=== PATIENT | female | born 1985 | race Hispanic/Latino ===

== ENCOUNTER 2020-02-01 13:22 | Outpatient (CLI) | payer OTHER, SELFPAY ==
--- NOTE | ~2020-02-01 | US_ITS ---
Please refer to diagnostic mammogram report dated 02/01/2020 for details. Reviewed, dictated and finalized at location A. D COORDINATOR
--- NOTE | ~2020-02-01 | MM_ITS ---
EXAMINATION: MM diagnostic yasmeen BI w teresa HISTORY: Breast pain. Left breast discharge. Swollen right lymph nodes. TECHNIQUE: Additional 3-D tomosynthesis images of the breasts were performed and synthetic 2-D images were generated. CAD analysis was submitted and interpreted. High resolution bilateral complete breas t ultrasound was performed. COMPARISON: None BREAST PARENCHYMAL COMPOSITION: The breasts are heterogenously dense, which may obscure small masses. FINDINGS: MAMMOGRAPHIC FINDINGS: There are no suspicious masses, calcifications or architectural distortion. There are bilateral breas t asymmetries which are relatively symmetric. ULTRASOUND: Bilateral breast ultrasound: There are no suspicious masses or fluid cysts in the right breast to sug gest malignancy. There is a 9 mm cyst of the left breast at 4:00, 6 cm from the nipple. No suspicious masses are identified in the left breast by ultrasound. IMPRESSION: 1. No evidence for malignancy in either breast. Benign findings. 2. Routine yearly screening mammogram and regular clinical breast examination are recommended. Recomm end follow-up clinical management for nipple discharge. BI-RADS Category 2: Benign finding(s). Reviewed, dictated and finalized at location A. IC MAN IMPRESSION: 1. No evidence for malignancy in either breast. Benign findings. 2. Routine yearly screening mammogram and regular clinical breast examination a re recommended. Recommend follow-up clinical management for nipple discharge. BI-RADS Category 2: Benign finding(s).
== END 2020-02-01 13:23 | disposition home or self-care (01) ==
LOC: ANHIMG 13:26
PROVIDERS: PCP Family Medicine; Visit Provider Nurse Practitioner Obstetrics & Gynecology
DX: N60.02 Solitary cyst of left breast (principal); N64.52 Nipple discharge; N64.4 Mastodynia
CPT/HCPCS: 76641; 77062; 77066; G0279

== ENCOUNTER 2023-04-29 09:32 | Emergency (ER) | payer OTHER, SELFPAY ==
[2023-04-29 09:54] VITALS: BP 101/60; PULSE 73; RESP 16; TEMP 36.8; O2SAT 99
--- NOTE | 2023-04-29 10:58 | ED.EYEPROB ---
HPI - Eye Problem General Chief complaint: Eye Problems Stated complaint: both eyes red Time Seen by Provider: 04/29/23 10:58 Source: patient Mode of arrival: ambulatory Limitations: no limitations History of Present Illness HPI Narrative: 38-year-old female [facility] with complaint bilateral eye erythema, edema, and yellow drainage for 2 days. Patient endorses that upon wakening her eyes were matted shut this morning. Patient has used [id number] eyedrops without relief. Patient endorses allergy to sulfa medications. Patient was diagnosed with influenza B 10 days ago. Patient diagnosed with bacterial skin infection of left ear last week but lost prescription medication. Patient denies visual changes, Headache, dizziness. Related Data Home Medications Medication Instructions Recorded Confirmed albuterol sulfate 90 mcg/actuation See Rx Instructions .Route .COMPLEX 04/29/23 04/29/23 aerosol inhaler cetirizine 10 mg tablet (Zyrtec) 10 mg PO DAILY 04/29/23 04/29/23 cholecalciferol (vitamin D3) 1,250 1,250 mcg PO WEEKLY 04/29/23 04/29/23 mcg (50,000 unit) capsule famotidine 20 mg tablet 20 mg PO BID 04/29/23 04/29/23 fluticasone furoate 200 1 inh inhalation DAILY 04/29/23 04/29/23 mcg-vilanterol 25 mcg/dose inhalation powder (Breo Ellipta) gabapentin 300 mg capsule 300 mg PO HS 04/29/23 04/29/23 montelukast 10 mg tablet 10 mg PO DAILY 04/29/23 04/29/23 Allergies Allergy/AdvReac Type Severity Reaction Status Date / Time Sulfa (Sulfonamide Allergy Unknown Unknown Verified 04/29/23 10:07 Antibiotics) Review of Systems Review of Systems: All systems reviewed & are unremarkable except as noted in HPI and below Constitutional: Constitutional: Reports no additional constitutional complaints, Denies fever(s) and Reports other ( patient endorses diagnosis of influenza 10 days ago) Eyes: Eyes: Reports as per HPI, Denies blurry vision, Denies change in vision, Reports eye discharge ( bilateral. yellow.), Reports irritation ( bilateral), Reports itchy eyes ( bilateral), Denies loss of vision, Reports requires corrective lenses ( glasses), Denies seeing flashes and Reports photophobia ENT: Reports system reviewed and no additional complaints, except as documented Cardiovascular: Cardiovascular: Reports no additional cardiovascular complaints, Denies chest pain and Denies dyspnea Respiratory: Respiratory: Reports no additional respiratory complaints, Denies cough and Denies dyspnea Musculoskeletal: Musculoskeletal: Reports no additional musculoskeletal complaints Neurologic: Reports system reviewed and no additional complaints, except as documented Psychiatric: Psychiatric: Reports no additional psychiatric complaints [facility]LY [facility], [facility] Family History Family History (System 03/17/23 @ 12:54 by Chacho Denise) Mother Family history of diabetes mellitus in first degree relative Family history of malignant neoplasm of breast in first degree relative Other Hypertension Social History Social History (System 03/17/23 @ 12:54 by Chacho Denise) Smoking status: Never smoker Second hand tobacco smoke exposure: Yes Alcohol intake: never Comments At the time of my signature, I reviewed and agree with the nursing past medical, surgical, social, and family history. There is no relevant family history pertinent to the patient complaint. Exam Const: General: cooperative, no acute distress, well developed, alert, awake, ill appearing, uncomfortable and well nourished Nutritional Appearance: well nourished Orientation/consciousness: patient oriented x3 Limitations: no limitations HENMT: Head: normal to inspection Ears: external ears normal Face/Nose/Sinus: Normal external nose present, Normal nares present, normal facial exam, No erythema and No edema Face and sinus: normal facial exam, no erythema and no edema Mouth: Yes Normal oral and palatal mucosa present Eyes: Visual Cisneros: normal visual
== END 2023-04-29 11:30 | disposition home or self-care (01) ==
PROVIDERS: Emergency Provider Nurse Practitioner Family
DX: H10.9 Unspecified conjunctivitis (principal); J45.909 Unspecified asthma, uncomplicated; K21.9 Gastro-esophageal reflux disease without esophagitis
CPT/HCPCS: 99213; G0463